=== PATIENT | female | born 1940 | race Caucasian/White ===

== ENCOUNTER 2021-01-23 02:49 | Inpatient (IN) | payer OTHER, BC ==
[~2021-01-23] VITALS: Ht 162.6 cm; Wt 54.1 kg
--- NOTE | 2021-01-23 05:44 | NUR ---
CODY WAS ADMITTED TO THE UNIT TO ROOM 518-B IN [facility] UNDER THE CARE OF DR GILL. ADMMITED FOR FOR UNSPECIFIED PSYCHOSIS. SHE CAME IN FROM HOME VIA [facility]. WITH HISTORY OF NOT EATING AND DRINKING. SHE IS A CONFUSED WITH SOME HISTORY OF NON INJURY FALL IN THE PAST COUPLE OF WEEKS. SHE IS CURRENTLY A DNR PENDING THE DNR PAPER. VITAL SIGN IS STABLE AND SHE IS CONTINENT OF BOWEL AND BLADDER.UNABLE TO GIVE HISTORY. WT NOTED AT 114LBS. 131/86, 97.6,16, 997% ,73. SHE IS RESTING CALM IN BED. CONSENT TO JESSICA OBTAINED FROM SON. POST ADMIT MEDS ARE ORDER BY DR. OLIVEIRA. ST CONSULT TO EVAL AND TREAT.SON IS POA NOTED IN THE FACE SHEET. UNABLE TO GET VACCINE INFORMATION AT THIS TIME. BS ACTIVE X 4 QUAD, SKIN INTACT. SHE IS ON Q12 MINS CHECK, BED IS LOW, LOCKED AND ALARMED.SHE HAS A NON SKID SOCKS ON. SHE HAS SOME JEWERIES TAKEN DOWM TO THE SECURITY PER PROTOCOL. SHE HAS A GOLD RING ON HER LEFT RING FINGER. CONTINUE CARE
[2021-01-23] MEDS ORDERED: HYDROCHLOROTHIA25 M1 PO (07:06)
[2021-01-23] MEDS ORDERED: ZOCOR40 MG PO (07:07)
[2021-01-23 07:55] LABS: CHOLESTEROL 190 mg/dL (<200); HDL CHOLESTEROL 79 mg/dL (>40); LDL CHOLESTEROL 100 mg/dL (<100); TC:HDL 2.4 Ratio (Not establshd); TRIGLYCERIDE 58 mg/dL (<150); VLDL 12 mg/dL (<40)
[2021-01-23 09:26] VITALS: BP 147/73
--- NOTE | 2021-01-23 09:32 | NUR ---
DID TAKE AM MEDS PO WHOLE WITH MUCH ENCOURAGEMENT DID HAVE SOME DIFFICULTY SWALLOWING POTASSIUM SO PUT WITH APPLESAUCE AND ABLE TO SWALLOW. ATE BREAKFAST IN ROOM PER SPEECH SO BWDSIDE SWALLOW EVAL COMPLETED. VS WNL-DENIES PAIN. MINIMALLY VERBAL-LOOKS AT THIS NURSE WITH PERPLEXED FACIAL EXPRESSIOIN WHEN ASKED WHY IS HERE. AT APPROX 0930 HEARING CRYING LOUDLY I N ROOM-WHEN APPROACHED IS ROCKING IN BED WITH ARMS OVER CHEST MAKING A CRADLE-YELLING FOR "BABY. UNABLE TO REASSURED OR REDIRECTED-CONTINUES LOUDLY TEARFUL-DOES NOT RESPOND TO STAFF ATTEMPTS TO REORIENT TO SITUATION-TANA FLOWERS WAS IN HOPITAL STATES "I KNOW I HAD A BABY"
[2021-01-23 20:09] VITALS: BP 148/84
[2021-01-23 20:30] VITALS: BP 148/84
[2021-01-24 01:06] LABS: GLYCOHEMOGLOBIN (HGB A1C) 5.9 % (4.8-5.6)
--- NOTE | 2021-01-24 03:25 | NUR ---
PATIENTS CARE WAS STARTED AT 1900. SHE IS ALERT AND ABLE TO VERBALISE NEEDS. SHE DENIES/SI/AVH. SHE IS CALM AND RESTING IN BED. SHE SWALLOW HER MEDS WHOLE. NO CONCERN NOTED AT THIS TIME. Q 12 MINUTES CHECK IS ONGOING. SHE HAS HER YELLOW SOCK AND SHIRT ON. LUNGS ARE CLEAR BS ACTIVE X4 QUAD. CONTINUE CARE. BED IS LOW, LOCK. CONTINUE CARE AND MONITOR.
[2021-01-24 09:02] VITALS: BP 124/65
--- NOTE | 2021-01-24 13:34 | NUR ---
VISIBLE IN [place] TODAY-ATTENDED AM MARIA L GROUP AND MEALS WITH MINIMAL PROMPTING. SAD FACIAL EXPRESSION. MINIMALLY VERBAL D/T EXPRESSIVE APHASIA-DOES WITHDRAW TO ROOM DURING ANY UNSTRUCTURED TIME. APPETITE FAIR. GAIT STEADY-DENIES C/O PAIN/DISCOMFORT. COMPLIENT WITH TAKING PO MEDICATIONS WITHOUT RESISTANCE.
[2021-01-24 19:37] VITALS: BP 125/50
--- NOTE | 2021-01-24 23:32 | NUR ---
ASSUMED CARE OF PATIENT AT APPROX 1900. SITTING IN DAY AREA WATCHING TV AMONGST PEERS. NO S/S OF DISTRESS OR DISCOMFORT. SMILES, CALM. EXPRESSIVE APHASIA NOTED. NOT ABLE TO ANSWER ASSESSMENT QUESTIONS ACURATELY. STATES "1, 2, 3, 4" WHEN ASKED FOR . TOOK MEDS WHOLE WITHOUT DIFFICULTY. PATIENT CURRENTLY LYING IN BED. WILL CONTINUE TO MONITOR.
[2021-01-25 09:30] VITALS: BP 125/58
--- NOTE | 2021-01-25 11:15 | NUR ---
MARYCHUY spoke with pt's son on 01/23 and obtained background hx of pt. Pt's son is currently on hospice in another state and so pt's son drover her to on 01/22. Upon arrival pt became agitated and attempted to elope several times; Be says pt appeared confused. According to son pt and took care of each other until pt's became ill and qualified for hospice. Pt raised 4 bio sons; 3 are now . Pt's son is her only living close family member. Be would like pt placed in a residential facility as he says he cannot care for her. He said she will need Medicaid as she only makes $700 per month in income from [employer]. Sec. Today MARYCHUY emailed to Be a [facility] welcome email to [email or web address], and a [place] listing from the Medicare.gov website. MARYCHUY team will continue to follow pt during her stay on this unit.
--- NOTE | 2021-01-25 14:31 | NUR ---
Assumed pt care at 0700. pt was in her room resting. Assessments completed, vss. Active bowel sound, no report of BM noted this shift. Pt denies si/hi, no c/o pain at this time. Took meds whole, no difficulty noted. Ambulates with a steady gait. No sign of acute distress noted upon assessments. CALM AND cooperative with care. pt is soft spoken. ORINETED TO PERSON. PT SON JHON CALLED TO GET UPDATE. at this time pt is in the her room resting. will continue to monitor pt.
[2021-01-25 19:14] VITALS: BP 120/45
--- NOTE | 2021-01-25 23:52 | NUR ---
ASSUMED PATIENT CARE AT 1900. PATIENT AMBULATORY WITH STEADY GAIT, INDEPENDENT WITH TOILETING. SMILES AT THIS FUNERAL HOME DIRECTOR, STATES "NO" TO QUESTIONS CONCERNING SI/HI/PAIN/DEPRESSION/AVH. PATIENT IS PLEASANT AND COMPLIANT WITH MEDICATIONS. UNABLE TO STATE DATE, , PLACE, SITUATION DUE TO EXPRESSIVE APHASIA. ANSWERS "1,2,3,4" FOR . WILL CONTINUE TO MONITOR.
[2021-01-26 10:01] VITALS: BP 137/64
--- NOTE | 2021-01-26 15:44 | NUR ---
SW left a message with [facility] asking them to reach out to pt's son Be [phone] asking them to assist pt with completing a Medicaid application. SW team will remain available.
--- NOTE | 2021-01-26 17:23 | NUR ---
PLEASANT AND COOPERATIVE. ATTENDING SCHEDULED GROUPS WITH PROMPTING AND WILL SIT WITH FEMALE PEER WATCHING TV DURING UNSTRUCTURED TIME IN PM. GAIT STEADY. GETS SELF TO AND FROM BATHROOM WITHOUT ANY NOTED EPISODES OF INCONTINENCE. APPETITE FAIR. IS ABLE TO COMMUNICATE NEEDS TO STAFF MOSTLY BY GESTURING D/T SEVERE EXPRESSIVE APHASIA. SAD FACIAL EXPRESSION-NO EPISODES OF TEARFULNESS TODAY. NO AGITATION. NO PSYCHOSIS NOTED OR REPORTED. DENIES C/O PAIN DURING ASSESSMENT. LUNGS CLEAR.BS ACTIVE X4
[2021-01-26 19:15] VITALS: BP 159/62
[2021-01-26 21:06] VITALS: BP 159/62
--- NOTE | 2021-01-27 00:49 | NUR ---
PATIENT CARE RESUMED AT 1900, NO S/S OF DISTRESS OR DISCOMFORT. DENIES ANY SI/HI/PAIN/DISCOMFORT. AMBULATES WITH STEADY GAIT, PLEASANT AND SMILING. TOOK MEDS WHOLE WITHOUT DIFFICULTY. WILL CONTINUE TO MONITOR.
[2021-01-27 10:14] VITALS: BP 159/62
--- NOTE | 2021-01-27 10:36 | NUR ---
MARYCHUY scheduled a family meeting with Be via phone for 1200 today. MARYCHUY emailed Ida with [facility] [employer] and asked for an update on the request for a Medicaid screening for pt. MARYCHUY team will continue to follow pt during her stay on this unit.
--- NOTE | 2021-01-27 12:58 | NUR ---
Assumed pt care at 0700. pt was in her room awake. Alert and oriented to person. Assessments completed, vss. Took meds whole, no difficulty noted. Denies si/hi. no c/o pain at this time. Ambulates with a steady gait. TOILETS self. pt makes need known to staff. No sign of acute distress noted upon assessments. At this time pt is in the day room watching TV. will continue to Monitor.
[2021-01-27 19:56] VITALS: BP 142/64
--- NOTE | 2021-01-28 05:29 | NUR ---
01-28-21 CARE TRANSFERRED 1899. LATER PT AAOX1, VSS, RR EVEN AND NONLABORED ON RA, PT DENIES SI/HI AND PAIN. PT PRESENTS CALM AND COOPERATIVE, ZERO S/S OF ACUTE DISTRESS NOTED, PT WILL CONTINUE TO BE MONITOR PER [facility] PROTOCOL.
[2021-01-28 09:19] VITALS: BP 116/60
[2021-01-28 12:28] VITALS: BP 120/85; BP 143/52
--- NOTE | 2021-01-28 12:42 | NUR ---
MARYCHUY met with Be during visitation who said he is meeting with [facility] at 1200 to sign Medicaid documents for pt. He also gave SW a copy of pt's Durable Power of Pullman Car Clerk. MARYCHUY reviewed [place] laws to find out how many doctors it takes to activate a [place] dpoa. MARYCHUY was unable to locate this information. She provided an update to Dr. Barone and advised that 2 doctors would be best as that is what is needed in [place]. MARYCHUY team will continue to follow pt during her stay on this unit.
[2021-01-28 12:46] VITALS: BP 116/60
--- NOTE | 2021-01-28 13:54 | NUR ---
1350 RESUMMED CARE FROM OVERNIGHT SHIFT THIS AM, PATIENT IN DAY ROOM SITTING QUIET. PATIENT ATE BREAKFAST TOOK MEDICATION WITHOUT INCIDENCE PATIENT DENIES SI/HI/AH/VH AT PRESENT. PATIENT ALERT ORIENTED TIMES 2 TO 3 PATIENTS ABDOMEN SOFT BOWEL SOUNDS PRESENT. PATIENTS LUNGS CLEAR PATIENT PARTICIPATED IN GROUPS PATIENT HAS NOT DISPLAYED ANY BEHAVIORS. WILL CONTINUE TO MONITOR PATIENT FOR SAFETY AND BEHAVIORS.
[2021-01-28 19:28] VITALS: BP 153/65
--- NOTE | 2021-01-29 10:51 | NUR ---
RT PROGRESS NOTE- Marian's improvements during this week's review period include more involvement in the milieu and presence in recreation therapy groups. During Marian's first few days on the unit she appeared sad and isolated to her room. She is unable to communicate these feelings however d/t extreme aphasia. Throughout the last half of the week, Marian has been present in each group and her mood appears brightened. She will respond in 1-2 words when asked how she is doing and most often states, "alright!" Speech has limited her active participation in discussion but she is observed to be listening. PERSONAL DEVELOPMENT COACH will encourage continued participation.
[2021-01-29 11:33] VITALS: BP 106/62
--- NOTE | 2021-01-29 14:42 | NUR ---
Alert and orientated to name only. Denies SI/HI. Ambulates with slow, shuffling gait. Flat affect. Breath sounds clear. Reg HR auscultated. Color pink with brisk capillary refill and palpable peripheral pulses. No edema noted. Independent with voiding. Active bowel sounds over soft, flat abdomen. Last documented BM 01/27. Participating in groups.
[2021-01-29 19:47] VITALS: BP 129/71
--- NOTE | 2021-01-30 04:17 | NUR ---
01-29-21 CARE TRANSFERRED 1914. LATER PT AAOX1, VSS, RR EVEN AND NONLABORED ON RA, PT DENIES PAIN AND SI/HI AND NO BEHAVIORS NOTED. PT HAS BEEN CALM AND COOPERATIVE. ZERO S/S OF ACUTE DISTRESS, NOTED, PT WILL CONTINUE TO BE MONITOR PER [facility] PROTOCOL.
[2021-01-30 05:23] LABS: HEMATOCRIT 40.6 % (37.0-47.0); HEMOGLOBIN 13.6 gm/dL (12.0-15.0); MCH 32.4 pg (26.0-34.0); MCHC 33.5 g/dL (28.0-37.0); RBC 4.18 mil/uL (4.20-5.00); WBC 5.6 thou/uL (4.0-11.0)
[2021-01-30 05:29] LABS: CALCIUM 8.9 mg/dL (8.5-10.1); CREATININE 0.7 mg/dL (0.6-1.0); MAGNESIUM 2.1 mg/dL (1.8-2.4); POTASSIUM 3.4 mmol/L (3.5-5.1)
[2021-01-30 10:00] VITALS: BP 119/64
--- NOTE | 2021-01-30 10:34 | NUR ---
Alert and orientated to name only. Denies SI/HI. Calm, cooperative and compliant. Breath sounds clear. Reg HR ausculated. Color pink with brisk capillary refill and palpable peripheral pulses. Independent with voiding. Active bowel sounds over soft, rounded abdomen. States she had BM last night. Ambulates with steady, shuffling gait. Currently sleeping in room without s/o distress.
--- NOTE | 2021-01-30 10:56 | NUR ---
SW reviewed the Medicaid website and pt is not showing a pending application status yet. SW reviewed the feedback from [employer]. They notated that pt and her spouse have excessive resources and are likely to be denied for Medicaid because of such. MARYCHUY notified Dr. Barone. SW team will continue to follow pt during her stay on this unit.
[2021-01-30 19:50] VITALS: BP 111/66
--- NOTE | 2021-01-31 05:24 | NUR ---
Assumed pt's care this pm shift. Pt oriented to self. Pleasant. Cooperative with care. Pt took meds whole without issues. Expressive aphasia. Pt denies anxiety and/or depression. Denies SI/HI. Pt slept well this shift. No overnight event noted. Nursing to continue to monitor.
[2021-01-31 09:26] VITALS: BP 138/71
--- NOTE | 2021-01-31 12:27 | NUR ---
Alert and orientated to name only. Calm, cooperative and compliant. Denies SI/HI. Breath sounds clear. Reg HR auscultated. Color pink with brisk capillary refill and palpable peripheral pulses. Independent with voiding. Active bowel sounds over soft, rounded abdomen. Ambulating with reg, steady gait. Resting in room after group this AM. No s/o distress.
--- NOTE | 2021-01-31 15:14 | NUR ---
Checked patient's Medicaid application status via website. Website indicated there is no current information available for the patient.
[2021-01-31 19:17] VITALS: BP 121/72
[2021-01-31 21:57] VITALS: BP 121/72
--- NOTE | 2021-01-31 22:04 | NUR ---
Assumed care from day shift, Pt is up ad jamie in the day room, Alert to self, Pt went to bed about 1999, took her medications whole with water without difficulty. Lungs clear, HRR, Abd soft NT, will continue to monitor throughout shift.
[2021-02-01 08:47] VITALS: BP 116/63
--- NOTE | 2021-02-01 11:09 | NUR ---
1105 RESUMMED CARE FROM OVERNIGHT SHIFT THIS AM, PATIENT SITTING IN DAY ROOM QUIET. PATIENT ALERT ORIENTED TO SELF ONLY PATIENT'S ABDOMEN SOFT BOWEL SOUNDS PRESENT. PATIENTS LUNGS CLEAR PATIENT DENIES SI/HI/AH/VH AT PRESENT. PATIENT HAS NOT DISPLAYED ANY BEHAVIORS THIS SHIFT. WILL CONTINUE TO MONITOR OATIENT FOR SAFETY AND BEHAVIORS.
[2021-02-01 19:09] VITALS: BP 135/74
[2021-02-01 20:20] VITALS: BP 135/74
--- NOTE | 2021-02-01 23:59 | NUR ---
PT CARE WAS RESUMED AT 1900. SHE IS CALM AND N CONCERN NOTED AT THIS TIME. SHE TOOK HER MEDS WHOLE. MODERATE ASSIST WITH CARE. SHE DENIES PAINS, SI/AVH/HI. SHE IS NOW IN BED . ALARM IS ACTIVATED, BED IS LOW, LOCKED AND YELLOW SCK AND TOP ARE ON. SHE IS CONTINET OF BOWEL AND BLADDER. ABD IS SOFT , FLAT, NONE TENDER. LUNGS ARE CLEAR X4 QUADS. AHE AMBULATES WITH WALKER.Q 12MINS CHECK ONGOING. CONTINUE CARE AND MONITOR.
[2021-02-02 08:32] VITALS: BP 115/58
[2021-02-02 11:12] VITALS: BP 115/58
--- NOTE | 2021-02-02 13:54 | NUR ---
MARYCHUY and Dr. Barone contacted Be and provided to him an update on pt including the challenges with placement; Med [facility] advised that pt is over resourced for Medicaid. Be said he knows and that there is approx. $150,000 in his parents' acct. However, this is for both his mom and his stepfather's care. His stepfather, pt's , has been transferred to an [place] in [place]. MARYCHUY told him that she will send referrals out to places, including the ones he chose, but on a private pay basis. Be said ok. MARYCHUY sent referrals to the following for pt: [facility] [address] MARYCHUY team will continue to follow pt during her stay on this unit.
--- NOTE | 2021-02-02 19:01 | NUR ---
1700 RESUMMED CARE FROM OVERNIGHT SHIFT THIS AM, PATIENT ALERT ORIENTED TO SELF. PATIENT ATE BREAKFAST TOOK MEDICATION WITHOUT INCIDENCE. PATIENT HAS NOT HAD ANY BEHAVIORS THIS SHIFT. PATIENTS ABDOMEN SOFT BOWEL SOUNDS PRESENT PATIENTS LUNGS CLEAR. PATIENT PARTICIPATED IN GROUPS WILL CONTINUE TO MONITOR PATIENT FOR SAFETY AND BEHAVIORS.
[2021-02-02 20:51] VITALS: BP 124/67
--- NOTE | 2021-02-03 04:35 | NUR ---
02-02-21 CARE TRANSFERRED 1899. LATER PT AAOX1, VSS, RR EVEN AND NONLABORED ON RA, PT PRESENTS CALM AND COOPERATIVE, PT HAS DIFFICULTY ARTICULATING THOUGHTS INTO WORDS. PT DENIES SI/HI AND PAIN. NO S/S OF PAIN NOTED, AND NO SI/HI BEHAVIORS NOTED. PT BED LOWEST POSITION, LOCKED, ALARM SET. RESPONSED TO BED ALARM AND PT WS UP AD BRIANA TO TOLIET, YELLOW URINE IN TOLIET NOTED. PT BED ALARM RESET. ZERO S/S OF ACUTE DISTRESS NOTED, PT WILL CONTINUE TO BE MONITOR [facility] PROT[facility]OL.
[2021-02-03 09:02] VITALS: BP 127/76
--- NOTE | 2021-02-03 11:16 | NUR ---
MARYCHUY sent via encrypted email a copy of pt's dpoa enactment letters. Casandra with [facility] asked for a copy of pt's dpoa docs. MARYCHUY faxed those to her. Updates on [facility] are as follows[facility] - Denied. Does not qualify for skilled. Does not have assisted living. [facility] - clinically accepted. Will call you today. [facility] - Left msg for admissions. [facility] - - Referral resent [facility] - Referral resent team will continue to follow pt during her stay on this unit.
--- NOTE | 2021-02-03 12:22 | NUR ---
Alert and orientated to name only. Occassionally has confused speech but may be r/t aphasia that is interfering with communication. Denies SI/HI. Breath sounds clear. Reg HR auscultated. Color pink with brisk capillary refill and palpable peripheral pulses. Independent with voiding. Active bowel sounds over soft, flat abdomen. States last BM was yesterday. Ambulates with slow, steady gait. Participating in groups. Currently eating lunch without s/o distress.
[2021-02-03 20:44] VITALS: BP 117/66
--- NOTE | 2021-02-04 05:22 | NUR ---
02-03-21 CARE TRANSFERRED 0 OBSERVED PT SITTING IN DAY ROOM. LATER PT AAOX1, VSS, RR EVEN AND NONLABORED ON RA, PT DENIES PAIN AND SI/HI. PT PRESENTS PLEASANT, CALM AND COOPERATVING. PT DOES HAVE DIFFICULTIE ARTICULATE THOUGHTS INTO WORDS R/T CVA. DURING MEDICATION ADMIN PT HAD NO DIFFICULTIES, TAKING PILLS WHOLE WITH WATER. ZERO S/S OF ACUTE DISTRESS NOTED, PT WILL CONTINUE TO BE MONITOR PER [facility] PROTOCOL.
[2021-02-04 08:50] VITALS: BP 124/60
--- NOTE | 2021-02-04 09:44 | NUR ---
PATIENT AWAKE AND IN DINING RODRIGUES WHEN CARE ASSUMED AT 0700. PATIENT COOPERATIVE AND AGREEABLE. PATIENT STATED HAD GOOD NIGHT SLEEP. DENIES ANY S/I - COMPLIANT WITH MEDICATIONS. ABLE TO COMMUNICATE NEEDS BUT DIFFICULT TO UNDERSTAND AT TIMES DUE TO EXPRESSIVE APHASIA. AFFECT BRIGHT AND MOOD PLEASANT. PARTICIPATED IN GROUP ACTIVITY THIS MORNING. COMPLETED 50 PERCENT OF HER BREAKFAST. 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
[2021-02-04 09:47] VITALS: BP 124/60
[2021-02-04 19:10] VITALS: BP 132/60
--- NOTE | 2021-02-05 05:53 | NUR ---
02-04-21 CARE TRANSFERRED 1900 OBSERVED PT SITTING IN DAY ROOM. LATER PT AAOX1, VSS, RR EVEN AND NONLABORED ON RA, PT DENIES PAIN AND SI/HI. PT HAS HAD NO NEGATIVE BEHAVIORS, REMAINS CALM AND COOPEATIVE. PT WILL CONTINUE TO BE MONITOR PER [facility] PROTOCOL.
[2021-02-05 08:00] VITALS: BP 137/65
--- NOTE | 2021-02-05 13:49 | NUR ---
Alert and orientated to name only. Calm, cooperative and compliant. Up ambulating without s/o distress. Breath sounds clear. Reg HR auscultated. Color pink with brisk capillary refill and palpable peripheral pulses. Independent with voiding. Active bowel sounds over soft, rounded abdomen. States BM was yesterday. Participating in groups. No s/o distress.
--- NOTE | 2021-02-05 15:01 | NUR ---
Updates on placement are as follows: [facility] - still reviewing referral. Said they tried to contact you. Call Jessica [phone]. 02/05/2021 [facility] - Denied. Does not qualify for skilled. Does not have assisted living. [facility] - Does not have AL. wants to accept to LTC. [facility] - Denied. Did not say why [facility] - No answer from admissions. 02/05/2021 [facility] - Accepted. Awaiting paperwork from [facility]. [facility] Does not admit straight to AL from hospital. SW team will continue to follow pt during her stay on this unit.
[2021-02-05 19:28] VITALS: BP 116/78
[2021-02-05 20:20] VITALS: BP 116/78
--- NOTE | 2021-02-06 08:22 | NUR ---
RT Progress Note- Marian's active participation in the milieu and recreation therapy groups has tapered off some compared to last week. Marian is sometimes unagreeable to attend groups and returns to her room. She is unable to successfully voice reason for this d/t aphasia. She continues to reply, "ok" or "alright" when asked how she is doing and does not appear to have changed in mood. During unscheduled time she is seen carrying various magazines, one being of dogs which she enjoys showing to other pts or staff. SEWING MACHINE OPERATOR FLOORPERSON will encourage further participation or provide 1;1 activities as pt allows.
[2021-02-06 08:37] VITALS: BP 144/71
[2021-02-06 09:17] VITALS: BP 144/72
--- NOTE | 2021-02-06 10:49 | NUR ---
1045 RESUMMED CARE FROM OVERNIGHT SHIFT THIS AM, PATIENT IN DAY ROOM SITTING QUIET. PATIENT DENIES SI/HI/AH/VH AT PRESENT PATIENT ALERT ORIENTED TIMES TWO. PATIENTS ABDOMEN SOFT BOWEL SOUNDS PRESENT PATIENTS LUNGS CLEAR. PATIENT PARTICIPATES IN GROUPS PATIENT HAS NOT DISPLAYED ANY BEHAVIORS. WILL CONTINUE TO MONITOR PATIENT FOR SAFETY AND BEHAVIORS.
--- NOTE | 2021-02-06 11:09 | NUR ---
MARYCHUY received an update from Be. He returned his docs back to [facility] and is awaiting approval from their finance department. He said that he is meeting with [facility] on Tuesday as a backup just in case [facility] does not accept. MARYCHUY will continue to follow pt during his stay on this unit.
[2021-02-06 19:12] VITALS: BP 96/68
--- NOTE | 2021-02-06 20:58 | NUR ---
PATIENT CARE ASSUMED AT 1900, PATIENT A&OX SELF AND PLACE. PLEASANT AND COOPERATIVE, NO NEGATIVE BEHAVIORS. TOOK MEDS WHOLE WITHOUT DIFFICULTY. ABLE TO FOLLOW DIRECTIONS AND MAKE NEEDS KNOWN DESPITE SOME EXPRESSIVE APHASIA. CURRENTLY LYING IN BED.
[2021-02-07 09:55] VITALS: BP 109/59
--- NOTE | 2021-02-07 11:17 | NUR ---
Alert and orientated to name only. Difficulty communicating d/t aphasia. Denies SI/HI. Ambulating in unit with regular, steady gait. Currently visiting with son without s/o distress. Breath sounds clear. Reg HR auscultated. Color pink with brisk capillary refill and palpable peripheral pulses. No edema noted. Independent with voiding, yellow urine observed in toilet. Active bowel sounds over soft, flat abdomen. Last documented BM 02/04.
--- NOTE | 2021-02-07 19:23 | NUR ---
RESUMED CARE AT 1900, PATIENT CURRENTLY IN DAY AREA SITTING AND INTERACTING WITH ANOTHER FEMALE PATIENT. NO S/S OF DISTRESS OR DISCOMFORT. AMBULATES INDEPENDENTLY WITH A STEADY GAIT.
[2021-02-07 20:05] VITALS: BP 110/58
[2021-02-08 07:09] LABS: ABSOLUTE NEUTROPHILS 2.8 thou/uL (1.4-8.2); BASOPHILS 0.9 % (0.0-2.0); MCHC 33.6 g/dL (28.0-37.0)
[2021-02-08 07:16] LABS: HEMOGLOBIN 12.8 gm/dL (12.0-15.0); MCH 32.2 pg (26.0-34.0); MCV 95.7 fL (80.0-100.0); MONOCYTES 14.1 % (1.0-8.0); PLATELET COUNT 319 thou/uL (150-400); RBC 3.97 mil/uL (4.20-5.00); WBC 5.2 thou/uL (4.0-11.0)
[2021-02-08 07:25] LABS: CALCIUM 8.9 mg/dL (8.5-10.1); CREATININE 0.8 mg/dL (0.6-1.0); MAGNESIUM 2.1 mg/dL (1.8-2.4); PHOSPHORUS 4.1 mg/dL (2.6-4.7); POTASSIUM 3.5 mmol/L (3.5-5.1)
[2021-02-08 08:54] VITALS: BP 129/66
[2021-02-08 09:21] VITALS: BP 129/66
--- NOTE | 2021-02-08 10:13 | NUR ---
1020 RESUMMED CARE FROM OVERNIGHT THIS AM, PATIENT SITTING IN DAY ROOM QUIET. PATIENT ALERT ORIENTED TO SELF ONLY PATIENT CALM COOPERATIVE HAS NOT DISPLAYED ANY BEHAVIORS. PATIENT DENIES SI/HI/AHVH AT PRESENT PATIENTS ABDOMEN SOFT BOWEL SOUNDS PRESENT. PATIENTS LUNGS CLEAR PATIENT IS OFTEN TIMES CONFUSED AND FORGETFUL. WILL CONTINUE TO MONITOR PATIENT FOR SAFETY AND BEHAVIORS.
[2021-02-08 19:45] VITALS: BP 104/63
--- NOTE | 2021-02-08 21:28 | NUR ---
RESUMED PATIENT CARE AT 1900, PATIENT SITTING IN DAY AREA WITH OTHER PATIENTS. NO S/S OF DISTRESS OR DISCOMFORT. TOOK MEDS WHOLE WITHOUT DIFFICULTY. PLEASANT AND COOPERATIVE, NO BEHAVIORS. AMBULATES INDEPENDENTLY WITH STEADY GAIT. HAS EXPRESSIVE APHASIA, BUT IS ABLE TO MAKE NEEDS KNOWN AND ABLE TO ANSWER SOME QUESTIONS WITH SHORT "YES" "NO" "OK" ANSWERS WITHOUT DIFFICULTY.
[2021-02-09 08:51] VITALS: BP 109/70
[2021-02-09 10:30] VITALS: BP 109/70
--- NOTE | 2021-02-09 12:09 | NUR ---
1200 RESUMMED CARE FROM OVERNIGHT SHIFT THIS AM, PATIENT ALERT ORIENTED TO SELF. PATIENT CALM COOPERATIVE PATIENT DENIES SI/HI/AH/VH AT PRESENT. PATIENTS ABDOMEN SOFT BOWEL SOUNDS PRESENT PATIENTS LUNGS CLEAR. PATIENT CALM COOPERATIVE PATIENT LIKES TO WALK AROUND THE UNIT. WILL CONTINUE TO MONITOR PATIENT FOR SAFETY AND BEHAVIORS.
[2021-02-09 19:15] VITALS: BP 103/57
[2021-02-09 20:10] VITALS: BP 103/57
--- NOTE | 2021-02-10 00:40 | NUR ---
PATIENT HAS BEEN IN HER ROOM THIS EVENING. SHE IS A/0X1. SHE IS CALM AND RELAXED. SHE ANSWERS YES/NO QUESTIONS AND DOES HAVE SOME EXPRESSION APHASIA. PT TOOK HER MEDS WHOLE WITH WATER AT HS. SHE DENIES PAIN. SHE HAS BEEN APPROPRIATE IN HER BEHAVIOR AND RESPONSES. NO SIGNS OF SI/HI/AVH NOTED. PATIENT SMILING AND PLEASANT. BED IN LOW POSITON. ROUTINE ROUNDS TO ASSESS FOR SAFETY AND STATUS OF PATIENT.
[2021-02-10 08:59] VITALS: BP 115/75
[2021-02-10 09:11] VITALS: BP 115/75
--- NOTE | 2021-02-10 11:24 | NUR ---
1130 RESUMMED CARE FROM OVERNIGHT SHIFT THIS AM, PATIENT SITTING IN DAY ROOM QUIET. PATIENT ALERT ORIENTED TO SELF ONLY PATIENT DENIES SI/HI/AH/VH AT PRESENT. PATIENT ATE BREAKFST TOOK MEDICATION WITHOUT INCIDENCE; PATIENTS ABDOMEN SOFT BOWEL SOUNDS PRESENT. PATIENTS LUNGS CLEAR PATIENT PARTICIPATES IN GROUPS. PATIENT HAS NOT DISPLAYED ANY BEHAVIORS AT PRESENT WILL CONTINUE TO MONITOR PATIENT FOR SAFETY AND BEHAVIORS.
--- NOTE | 2021-02-10 11:47 | NUR ---
MARYCHUY spoke with Karissa with [facility] who wants to schedule an assessment for pt on the unit after her financials have been reviewed and accepted. She did mention it is a stretch and that is why they are still reviewing. MARYCHUY said ok. SW team will continue to follow pt during her stay on this unit.
[2021-02-10 19:13] VITALS: BP 109/54
[2021-02-10 20:30] VITALS: BP 109/54
--- NOTE | 2021-02-11 01:01 | NUR ---
PATIENT WAS UP IN DINING ROOM THIS EVENING WHEN ASSUMED CARE AT 1900. SHE WAS CALM AND COOPERATIVE. PLEASANT AND SMILING. PATIENT REFUSED HS SNACK. SHE AMBULATES WITH STEADY GAIT. SHE DENIES SI/HI/AVH. SHE IS A/0 X 1. SHE HAS EXPRESSIVE APHASIA AND IS BETTER AT ANSWERING YES AND NO QUESTIONS. PT APPEARS TO BE SLEEPING AT THIS TIME. SHE TOOK HER MEDS WHOLE WITH WATER. SHE DENIES PAIN. ROUTINE ROUNDS TO ASSESS SAFETY AND STATUS OF PATIENT.
[2021-02-11 10:50] VITALS: BP 107/54
--- NOTE | 2021-02-11 11:15 | NUR ---
PATIENT HAS BEEN UP, AND OUT ON THE UNIT, PARTICIPATES IN GROUP THERAPY. PATIENT TOOK ALL MEDICATION WHOLE WITHOUT DIFFICULTY, SHE IS EATING MEALS, AND DRINKING FLUID WELL. PATIENT DENIES SUICIDAL/HOMICIDAL IDEATION, SHE DENIES DEPRESSION/ANXIETY, DENIES HAVING PHYSICAL PAIN. AFFECT IS BRIGHT, MOOD IS HAPPY. PATIENT IS ALERT, AND ORIENTEX X 1-2, SHE IS FORGEFUL, AND CONFUSED AT TIMES. NO SIGN OF ACUTE DISTRESS NOTED AT THIS TIME, WILL MONITOR FOR SAFETY.
--- NOTE | 2021-02-11 11:17 | NUR ---
MARYCHUY received an email from Be stating that he will be meeting with [facility] to tour the property today. MARYCHUY responded with an update that [facility] will be assessing his mother today at 3pm. MARYCHUY team will continue to follow pt during her stay on this unit.
[2021-02-11 19:32] VITALS: BP 150/68
--- NOTE | 2021-02-11 23:59 | NUR ---
ASSESSMENT: PT REMAIN ALERT AND ORIENT TIMES THREE. UP WITH STEADY GAIT IN THE CORRIDOR AND DAY AREA. PT HAS EXPRESSIVE APHASIA, MUMBLES INCOMPREHENSIBLE WORDS AND AT THE SAME TIMES, POINTS IN DIRECTIONS THAT SHE IS REFERRING TO. VSS, AFEBRILE. POSSIBLE DC TO [facility] SOON. REMAINED CALM AND COOPERATIVE THROUGHOUT THE NIGHT. SLOW PROGRESS TOWARDS DC GOALS, WILL CONTINUE TO MONITOR.
[2021-02-12 08:56] VITALS: BP 106/70
[2021-02-12 09:41] VITALS: BP 103/70
--- NOTE | 2021-02-12 10:23 | NUR ---
1023 RESUMMED CARE FROM OVERNIGHT SHIFT THIS AM, PATIENT SITTING IN DAY ROOM QUIET. PATIENT ATE BREAKFAST TOOK MEDICATION WITHOUT INCIDENCE. PATIENT DENIES SI/HI/AH/VH AT PRESENT. PATIENTS ABDOMEN SOFT BOWEL SOUNDS PRESENT PATIENTS LUNGS CLEAR. PATIENT PARTICIPATED IN GOUUPS TODAY PATIENT AFFECT FLAT AND HAS NOT DISPLAYED ANY BEHAVIORS. PATIENT WANTS TO LEAVE HER AND GO HOME WILL CONTINUE TO MONITOR PATIENT FOR SAFETY AND BEHAVIORS.
--- NOTE | 2021-02-12 11:01 | NUR ---
RT Progress Note- Marian has withdrawn slightly from the milieu since her previous progress note entry. She has displayed preference to remain in her room often and is unable to voice why d/t aphasia. She does not remain the entirity of group sessions. It is noted that Marian brightens very much so when speaking to her about horses, dogs, or painting. CLAIM PROFESSIONAL has used this to engage patient when she is withdrawn. RT team will encourage patient to continue to be apart of the milieu during her admission.
--- NOTE | 2021-02-12 11:18 | NUR ---
MARYCHUY received a call from [facility] who stated [facility] has accepted pt, but cannot move her in until the because they need to prepare her room. MARYCHUY explained that she will need to discuss this with Dr. Barone, but that she does not have the authority to approve or deny that plan. He said ok. MARYCHUY contacted Karissa with [facility]. No answer. MARYCHUY left a msg. MARYCHUY provided an update to Dr. Barone who also said he was unsure if he could keep pt that long as she is not exhibiting any behaviors. SW team will continue to follow pt during her stay on this unit.
[2021-02-12 19:50] VITALS: BP 144/66
[2021-02-12 21:54] VITALS: BP 124/63
--- NOTE | 2021-02-12 22:09 | NUR ---
1944 RESUMMED CARE FROM DAY SHIFT THIS PM, PATIENT ALERT ORIENTED TO SELF AND PLACE. PATIENT IN ROOM RESTING QUIET PATIENT DENIES SI/HI/AH/VH AT PRESENT. PATIENTS ABDOMEN SOFT BOWEL SOUNDS PRESENT PATIENTS LUNGS CLEAR. PATIENT HAS NOT DISPLAYED ANY BEHAVIORS THIS SHIFT. WILL CONTINUE TO MONITOR PATIENT FOR SAFETY AND BEHAVIORS.
[2021-02-13 09:01] VITALS: BP 112/69
--- NOTE | 2021-02-13 12:26 | NUR ---
PATIENT HAS BEEN QUIET AND CALM TODAY. SMILES WHEN APPROACHED. STATES READY TO LEAVE. APPEARS PLEASED WITH FINDING PLACE TO RESIDE. DENIES ANY S/I AND RATED DEPRESSION AND ANXIETY LOW 3/10 - COMPLIANT WITH MEDICAIONS. GOOD APPETITE MAKES NEEDS KNOWN READILY. DOES NOT INTERACT MUCH WITH OTHERS ON [facility] BUT RESPONSIVE WHEN OTHERS INTIATE CONVERNSATION. AMUBULATES INDEPENDENTLY.
--- NOTE | 2021-02-13 15:03 | NUR ---
In tx team Dr. Barone asked if pt can be discharged on Tuesday to [facility] as his vacation begins Tuesday. MARYCHUY contacted aKrissa with [facility]. No answer. MARYCHUY left a msg on her vm. SW team will continue to follow pt during her stay on this unit.
--- NOTE | 2021-02-13 19:16 | NUR ---
PATIENT CARE ASSUMED AT 0700 - UP ON UNIT AT SHIFT CHANGE. QUIET AND PLEASANT DIFFICULT TO UNDERSTAND AT TIMES WITH EXPRESSIVE APHASIA. STATES HAD GOOD NIGHT SLEEP. MANUVERS AROUND UNIT INDEPENDENTLY. APPETITE GOOD. APPEARED HAPPY TO HEAR PLACEMENT FOUND AND WOULD BE DISCHARGING SHORTLY. PATIENT COMPLIANT WITH MEDICATIONS. MAKES NEEDS KNOWN READILY. ALERT 1-2 FORGETFUL AT TIMES.
[2021-02-13 19:26] VITALS: BP 142/68
[2021-02-13 23:44] VITALS: BP 142/68
--- NOTE | 2021-02-13 23:51 | NUR ---
Pt is alert/oriented, with expressive aphasia, affect is pleasant. Took her medications whole with water with no issues. Pt is ambulatory independently without assist device. Denies SI/HI/AH/VH one episode of incontinence. will continue to monitor throughout shift.
--- NOTE | 2021-02-14 07:12 | NUR ---
Pt seems really anxious this morning and was pointing to her abdomen as assessed by PCT and another pt. This nurse assessed pt and initially pt just pointed to her epigastric area, this nurse asked if she was experiencing chest discomfort and she shock her head no. Pt has expressive aphasia, abdomen at the time seemed firm but pt did have active bowel sounds. MOM and mylanta given. She complained to PCT and another nurse that her chest was hurting after further assessment she continued to point to her chest and upper abdomen. Called [facility] Que[facility]ada to get an order for an EKG. EKG shows normal sinus rhythm and HR 63 and when bath house attendant came to assess pt was no longer complaining of pain. VS range 145-158/68-93, HR 65-110. Oncoming shift aware of complaints and will continue to follow
[2021-02-14 08:25] VITALS: BP 139/81
--- NOTE | 2021-02-14 10:28 | NUR ---
Alert and orientated X1, states name and denies SI/HI. Aphasia makes it difficult to communicate with pt. Reported to previos RN that she was having pain in epigastric and chest. 12 lead EKG done. Reg HR auscultated. Color pink with brisk capillary refill and palpable peripheral pulses. No edema or diaphoresis noted. Nods "no" when asked if she was nauseated. By 0800 pain was resolved and she ate 100% of breakfast. Breath sounds clear. Independent with voiding. Active bowel sounds over soft, rounded abdomen. MOM given on previous shift. Last documented BM was on 02/11/21. Up ambulating in unit without s/o distress. Dr. Crum here rounding on pt.
--- NOTE | 2021-02-14 11:02 | EKG ---
[place] [address] [facility] [place] [address] ELECTROCARDIOGRAM REPORT Name: GABRIELA CORONEL Room #: 518-B ADM IN M.R.#: [id number] Admission: 01/23/21 Attend Phys: Winston Barone DO Discharge: Date of : 44 Report #: [id number] [facility] Test Date: 2021-02-14 Test Time: 06:55:12 Pat Name: GABRIELA CORONEL Department: Room: [facility] Gender: F Service Secretary: MARQUES : 1940 Requested By: Winston Obrien Order Number: [id number] MD: Parish Vargas Measurements Intervals Gates Rate: 63 P: 91 TN: 216 QRS: -7 QRSD: 91 T: 45 QT: 419 QTc: 429 Interpretive Statements Sinus rhythm First-degree AV block Borderline T abnormalities, anterior leads Compared to ECG 01/23/2021 00:07:15 No significant change Electronically Signed On 02-14-2021 11:01:59 CDT by Parish Vargas [email or web address] <ELECTRONICALLY SIGNED> By: Parish Vargas MD 02/14/21 1101 [id number] MD LOURDES Tamez
[2021-02-14 19:27] VITALS: BP 142/74
[2021-02-14 19:30] VITALS: BP 142/74
--- NOTE | 2021-02-14 22:08 | NUR ---
Assumed care on 02/14/21 @ 1900, pleasant affect noted, A&Ox1 Expressive aphasia makes mental health assessment difficult. Can understand name, and denies pain in abdomen and chest. HRRR, Lung sounds CTA bilat, ABD N x 4Q, pleasant affect noted. Cooperative with assessment and compliant with medication administration, taking meds whole with water. Will continue to monitor for safety and comfort as per unit protocol.
[2021-02-15 08:26] VITALS: BP 14/69
[2021-02-15 19:25] VITALS: BP 122/70
[2021-02-15 19:32] VITALS: BP 122/70
--- NOTE | 2021-02-15 23:37 | NUR ---
Assumed care on 02/15/21 @ 1900, seated in the day room at a table. Does not socialize with peers, however responds when staff interacts with her. Awake Alert and oriented to self x1. Speach aphasia noted. Can answer yes no questions, and is fairly well able to express her needs. Takes meds whole with water. Tries to go to bed without clothes on. Encouraged to wear hospital scrub top and hospital pants, and she will do so with encouragement. Bed in low position, bed alarm set, will continue to monitor as per unit protocol for safety and comfort.
[2021-02-16 08:55] VITALS: BP 120/76
--- NOTE | 2021-02-16 16:48 | NUR ---
Assumed pt care at 0700. pt was in the day room. Assessments completed, vss. active bowel sounds, s1 s2 regular, vss. Assessments completed. denies si/hi, denies pain at this time. Pt took meds whole, no difficulty noted. Pt ambulates with a steady gait. Calm and cooperative with care. No sign of acute distress noted upon assessments. Pt often wanders the unit. At this time, pt is in the day room. Will continue to monitor.
[2021-02-16 19:53] VITALS: BP 125/67
[2021-02-16 20:10] VITALS: BP 125/67
[2021-02-17 09:20] VITALS: BP 139/63
[2021-02-17 10:53] VITALS: BP 139/63
--- NOTE | 2021-02-17 12:17 | NUR ---
MARYCHUY contacted Be and provided to him an update on pt. He confirmed he will be at the hospital tomorrow to pick pt up and transport her to [facility]. MARYCHUY Team will continue to follow pt during her stay on this unit.
--- NOTE | 2021-02-17 18:19 | NUR ---
Assumed pt care at 0700. pt was in the day room. alert and oriented to person. Assessments completed, vss. active bowel sound, lungs clear on auscultation. Pt took meds whole, no difficulty noted. Ambulates with a steady gait. Denies SI/HI, denies pain at this time. Calm and cooperative with care. mEDS ADMINISTERED ORDERED. No SIGN OF ACUTE DISTRESS NOTED UPON ASSESSMENTS. pt had a bowel movement this shift. Makes needs know to staff. ambulates round the unit. Will continue to monitor pt.
[2021-02-17 20:11] VITALS: BP 155/70
--- NOTE | 2021-02-18 04:47 | NUR ---
02-17-21 CARE TRANSFERRED 0 OBSERVED PT WALKING IN HALLWAY. LATER PT AAOX1, VSS, RR EVEN AND NONLABORED ON RA. PT HAS REMAINED CALM AND COOPERATIVE THROUGHOUT NURSING ASSESSMENT. PT HAD NO DIFFICULTIES DURING MEDICATION ADMIN. PT DOES HAVE CHALLENGES WHEN TRYING TO ARTICULATE THOUGHTS INTO WORDS R/T CVA. PT WILL CONTINUE TO BE MONITOR PER [facility].
[2021-02-18 08:51] VITALS: BP 150/80
[2021-02-18 09:51] VITALS: BP 150/80
[2021-02-18] MEDS ORDERED: KLOR-CON 10 ER10 MEQ PO (10:32)
[2021-02-18] MEDS ORDERED: LEXAPRO 10 MG T10 MG PO (10:32)
[2021-02-18] MEDS ORDERED: HALOPERIDOL 1 MG1 MG PO (10:32)
--- NOTE | 2021-02-18 11:33 | NUR ---
1115 RESUMMED CARE FROM OVERNIGHT SHIFT THIS AM, PATIET IN DAY ROOM SITTING QUIET. PATIENT ATE BREAKFAST TOOK MEDICATION WITHOUT INCIDENCE. PATIENT ALERT ORIENTED TO SELF ONLY PATIENT DENIES SI/HI/AH/VH AT PRESENT. PATIENTS ABDOMEN SOFT BOWEL SOUNDS PRESENT, PATIENTS LUNGS CLEAR. PATIENTS SON CAME TO DISCHARGE PATIENT TO [facility]. I GAVE PATIENTS SON DISCHARGE INFORMATION PATIENTS BELONGINGS. I CALLED FACILITY RO GIVE REPORT RECEIVED ANSWERING MACHINE. I LEFT A MESSAGE TO CALL ME BACK SO I CAN GIVE REPORT; PATIENT CALM COOPERATIVE.
--- NOTE | 2021-02-18 13:46 | NUR ---
SW D/C NOTE SW faxed pt's discharge docs including a copy of her dpoa document with the 2 notes from doctors enacting the document. MARYCHUY will file docs and confirmation in pt's hospital file. No other needs for SW team to address at this time.
== END 2021-02-18 11:20 | DRG 884 ==
LOC: SBH 02:49
PROVIDERS: Internal Medicine; ADMIT Psychiatry & Neurology Psychiatry; ATTEND Psychiatry & Neurology Psychiatry
DX: F01.51 Vascular dementia, unspecified severity, with behavioral disturbance (principal); N39.0 Urinary tract infection, site not specified; F29 Unspecified psychosis not due to a substance or known physiological condition; I10 Essential (primary) hypertension; E78.5 Hyperlipidemia, unspecified; F41.9 Anxiety disorder, unspecified; E87.6 Hypokalemia; R07.9 Chest pain, unspecified; I95.9 Hypotension, unspecified; Z96.641 Presence of right artificial hip joint; Z20.822 Contact with and (suspected) exposure to COVID-19; Z91.030 Bee allergy status; I69.320 Aphasia following cerebral infarction
CPT/HCPCS: 10880

== ENCOUNTER 2021-03-11 14:39 | Emergency (ER) | payer OTHER, BC ==
[~2021-03-11] VITALS: Ht 160 cm; Wt 51.3 kg
[~2021-03-11 14:39] MED LIST: HALOPERIDOL 1 MG1 MG PO; HYDROCHLOROTHIA25 M1 PO; KLOR-CON 10 ER10 MEQ PO; LEXAPRO 10 MG T10 MG PO; ZOCOR40 MG PO
[2021-03-11 14:56] VITALS: BP 159/78
[2021-03-11] MEDS ORDERED: TYLENOL325 MG PO (15:18)
[2021-03-11 16:14] LABS: HEMATOCRIT 41.2 % (37.0-47.0); HEMOGLOBIN 13.5 gm/dL (12.0-15.0); MCHC 32.7 g/dL (28.0-37.0); MCV 97.9 fL (80.0-100.0); RBC 4.21 mil/uL (4.20-5.00); RDW 13.5 % (10.5-14.5); WBC 6.9 thou/uL (4.0-11.0)
[2021-03-11 16:17] LABS: CALCIUM 9.3 mg/dL (8.5-10.1); POTASSIUM 4.1 mmol/L (3.5-5.1)
[2021-03-11 16:25] LABS: ALBUMIN 3.8 g/dL (3.4-5.0); TOTAL BILIRUBIN 0.5 mg/dL (0.2-1.0); TOTAL PROTEIN 7.1 g/dL (6.4-8.2)
[2021-03-11 16:44] LABS: URINE BILIRUBIN NEGATIVE (Negative); URINE BLOOD 1+ (Negative); URINE CLARITY CLEAR; URINE COLOR YELLOW; URINE GLUCOSE-RANDOM* NEGATIVE (Negative); URINE KETONES 2+ (Negative); URINE LEUKOCYTES-REFLEX NEGATIVE (Negative); URINE NITRITE-REFLEX NEGATIVE (Negative); URINE PROTEIN (DIPSTICK) NEGATIVE (Negative); URINE SPECIFIC GRAVITY >= 1.030 (1.005-1.035)
[2021-03-11 16:57] LABS: SQUAMOUS 4-10 Moderate /LPF (0-3)
[2021-03-11 16:58] LABS: URINE WBC-REFLEX 0-5 Rare /HPF (0-5)
[2021-03-11 16:59] LABS: BACTERIA-REFLEX 1-9 Few /HPF (None Seen); URINE RBC 3-10 Few /HPF (NONE SEEN)
== END 2021-03-11 18:17 | disposition home or self-care (01) ==
LOC: ER 14:39
PROVIDERS: Emergency Medicine
DX: M27.0 Developmental disorders of jaws (principal); I10 Essential (primary) hypertension; E78.5 Hyperlipidemia, unspecified; F32.9 Major depressive disorder, single episode, unspecified; F41.9 Anxiety disorder, unspecified; Z98.890 Other specified postprocedural states; Z79.899 Other long term (current) drug therapy; Z79.891 Long term (current) use of opiate analgesic; Z91.030 Bee allergy status